=== PATIENT | female | born 1990 | race Caucasian/White ===

== ENCOUNTER 2017-12-01 13:34 | Emergency (ER) | payer MEDICAID ==
[2017-12-01 13:45] VITALS: BP 127/82; PULSE 85; TEMP 98.1; O2SAT 99
[2017-12-01 14:31] LABS: URINE BILIRUBIN NEGATIVE (NEGATIVE); URINE BLOOD NEGATIVE (NEGATIVE); URINE CLARITY Clear (Clear); URINE COLOR Colorless (YELLOW); URINE GLUCOSE (UA) NORMAL (Normal); URINE LEUKOCYTE ESTERASE NEG Leu/uL (Negative); URINE PROTEIN NEGATIVE (NEGATIVE); URINE UROBILINOGEN NORMAL mg/dL (0.2-1.0)
[2017-12-01 14:58] LABS: HCG,QUALITATIVE URINE NEGATIVE (NEGATIVE)
--- NOTE | 2017-12-01 15:17 | C.PDOC ---
History Of Present Illness 27 y/o female presents to ED requesting test. Patient states she missed her period, last period was 10/29/17 and reports taking home test with fainted line. Contrary to triage patient denies any pain and states she just wants to confirm she is . Patient denies vaginal bleeding, dysuria, nasuea, vomiting or abdominal pain. Time Seen by Provider: 12/01/17 13:48 Chief Complaint (Nursing): Abdominal Pain History Per: Patient History/Exam Limitations: no limitations Onset/Duration Of Symptoms: Days Current Symptoms Are (Timing): Still Present Past Medical History Reviewed: Historical Data, Nursing Documentation, Vital Signs Vital Signs: Last Vital Signs Temp 98.1 F 12/01/17 13:42 Pulse 85 12/01/17 13:42 Resp 20 12/01/17 15:45 BP 127/82 12/01/17 13:42 Pulse Ox 99 12/01/17 15:24 - Medical History PMH: No Chronic Diseases Surgical History: No Surg Hx Family History: States: No Known Family Hx - Social History Hx Alcohol Use: Yes Hx Substance Use: No - Immunization History Hx Tetanus Toxoid Vaccination: No Hx Influenza Vaccination: No Hx Pneumococcal Vaccination: No Review Of Systems Constitutional: Negative for: Fever, Chills Gastrointestinal: Negative for: Nausea, Vomiting, Abdominal Pain Genitourinary: Negative for: Dysuria, Hematuria Musculoskeletal: Negative for: Back Pain Physical Exam - Physical Exam Appears: Non-toxic, No Acute Distress Skin: Warm, Dry Head: Atraumatic, Normacephalic Eye(s): bilateral: Normal Inspection Oral Mucosa: Moist Neck: Normal ROM, Supple Cardiovascular: Rhythm Regular, No Murmur Respiratory: Normal Breath Sounds, No Rales, No Rhonchi, No Wheezing Gastrointestinal/Abdominal: Soft, No Tenderness, No Guarding, No Rebound Back: No CVA Tenderness Extremity: Bilateral: Atraumatic Neurological/Psych: Oriented x3, Normal Speech ED Course And Treatment O2 Sat by Pulse Oximetry: 99 (RA) Pulse Ox Interpretation: Normal Medical Decision Making Medical Decision Making: Impression: Requests test Plan: UA, test Progress: Urine was negative. Patient requesting blood test which in my opinion is unnecessary. Patient is stable for discharge. She has no fever and abdomen soft, no tenderness or pain. Patient instructed to follow up with OB-TARGETING ACQUISITION OFFICER or clinic. Disposition Counseled Patient/Family Regarding: Diagnosis, Need For Followup - Disposition Disposition: HOME/ ROUTINE Disposition Time: 15:16 Condition: STABLE Additional Instructions: Please follow up with your ob.histology tech or clinic for further evaluation Instructions: Tests Forms: [employer] (Slovenian) - POA Present On Arrival: None - Clinical Impression Clinical Impression: Negative test - PA / LUMP RECEIVER / Resident Statement MD/DO has reviewed & agrees with the documentation as recorded. - Scribe Statement The provider has reviewed the documentation as recorded by the Donnyibgallo Barakat All medical record entries made by the Elo were at my direction and personally dictated by me. I have reviewed the chart and agree that the record accurately reflects my personal performance of the history, physical exam, medical decision making, and the department course for this patient. I have also personally directed, reviewed, and agree with the discharge instructions and disposition.
[2017-12-01 15:46] VITALS: RESP 20
== END 2017-12-01 15:45 | disposition home or self-care (01) ==
LOC: C.ER 13:34
DX: Z32.02 Encounter for pregnancy test, result negative (principal)

== ENCOUNTER 2018-04-02 21:52 | Emergency (ER) | payer MEDICAID, OTHER ==
[2018-04-02 23:21] LABS: BASO % 0.3 % (0.0-2.0); EOS % 0.4 % (0.0-4.0); HEMOGLOBIN 10.4 g/dL (11.0-16.0); LYMPH # 1.8 K/uL (1.0-4.3); LYMPH % 17.8 % (20.0-40.0); MEAN CELL VOLUME 85.5 fL (81.0-99.0); MEAN CORPUSCULAR HGB CONC 33.9 g/dL (33.0-37.0); MEAN PLATELET VOLUME 7.7 fL (7.2-11.7); MONO # 0.7 K/uL (0.0-0.8); MONO % 6.8 % (0.0-10.0); NEUT # 7.4 K/uL (1.8-7.0); NEUT % 74.7 % (50.0-75.0); RBC 3.61 Mil/uL (3.80-5.20); RED CELL DISTRIBUTION WIDTH 14.9 % (11.5-14.5); WHITE BLOOD COUNT 9.9 K/uL (4.8-10.8)
[2018-04-02 23:22] LABS: SQUAMOUS EPITHIAL 8 /hpf (0-5); URINE AMORPHOUS SEDIMENT RARE /ul (<OCC); URINE BACTERIA RARE (<OCC); URINE BILIRUBIN NEGATIVE (NEGATIVE); URINE BLOOD NEGATIVE (NEGATIVE); URINE CLARITY Hazy (Clear); URINE COLOR Yellow (YELLOW); URINE GLUCOSE (UA) NORMAL (Normal); URINE LEUKOCYTE ESTERASE NEG Leu/uL (Negative); URINE PROTEIN NEGATIVE (NEGATIVE); URINE UROBILINOGEN NORMAL mg/dL (0.2-1.0)
[2018-04-02 23:25] LABS: ALB/GLOB RATIO 1.1 (1.0-2.1); ALBUMIN 3.5 g/dL (3.5-5.0); ALT/SGPT 15 U/L (9-52); AST/SGOT 14 U/L (14-36); BLOOD UREA NITROGEN 7 mg/dL (7-17); CALCIUM 8.2 mg/dl (8.6-10.4); GFR AFRICAN-AMERICAN > 60; GFR NON-AFRICAN AMERICAN > 60
[2018-04-02 23:30] LABS: PROTHROMBIN TIME 11.4 SECONDS (9.7-12.2)
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
[2018-04-03 04:31] VITALS: BP 107/51; PULSE 65; RESP 20; TEMP 98
== END 2018-04-03 00:20 | disposition home or self-care (01) ==
LOC: C.EROB 21:52
DX: S39.91XA Unspecified injury of abdomen, initial encounter (principal); W17.89XA Other fall from one level to another, initial encounter; O26.892 Other specified pregnancy related conditions, second trimester; Z3A.22 22 weeks gestation of pregnancy

== ENCOUNTER 2018-05-19 14:50 | Emergency (ER) | payer OTHER ==
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
[2018-05-19 20:56] VITALS: BP 108/65; PULSE 111; TEMP 98.6
== END 2018-05-19 16:40 | disposition home or self-care (01) ==
LOC: C.EROB 14:50
DX: O26.893 Other specified pregnancy related conditions, third trimester (principal); Z3A.28 28 weeks gestation of pregnancy; T14.90XA Injury, unspecified, initial encounter; W01.0XXA Fall on same level from slipping, tripping and stumbling without subsequent striking against object, initial encounter